=== PATIENT | male | born 1990 | race Caucasian/White ===

== ENCOUNTER 2017-12-23 02:24 | Emergency (ER) | payer SELFPAY ==
--- NOTE | 2017-12-23 03:49 | ER ---
Nurse's Notes [facility] Name: Carlitos Merrill Age: 27 yrs Sex: Male : 1990 Arrival Date: 12/23/2017 Time: 02:24 Bed 5 Private MD: Diagnosis: Leg cramps Presentation: 12/23 02:32 Presenting complaint: Patient states: that he is having pain from his left foot all the fc way up to his groin. Now the foot itself is also numb. Has swollen area and bruising to top of foot. Denies any injury. Transition of care: patient was not received from another setting of care. Onset of symptoms was December 23, 2017 at 00:30. Risk Assessment: Do you want to hurt yourself or someone else? Patient reports no desire to harm self or others. Initial Sepsis Screen: Does the patient meet any 2 criteria? No. Patient's initial sepsis screen is negative. Does the patient have a suspected source of infection? No. Patient's initial sepsis screen is negative. Care prior to arrival: None. 02:32 Method Of Arrival: Ambulatory 02:32 Acuity: DEMIAN 4 Triage Assessment: 02:38 General: Appears uncomfortable, slender, Behavior is calm, cooperative, appropriate for age. Pain: Complains of pain in left foot and left leg Pain currently is 5 out of 10 on a pain scale. Quality of pain is described as aching, sharp, throbbing, numb, Pain began 2 hours ago. Is intermittent. EENT: No deficits noted. Neuro: Level of Consciousness is awake, alert, obeys commands, Oriented to person, place, time, situation, Reports numbness in left foot. Cardiovascular: No deficits noted. Respiratory: No deficits noted. GI: No deficits noted. : No deficits noted. Derm: Skin is pink, warm \\T\\ dry. Bruising that is dark purple, on dorsum of left foot. Musculoskeletal: Circulation, motion, and sensation intact. Capillary refill < 3 seconds, Range of motion: intact in all extremities, Reports pain in left foot and left leg. Historical: - Allergies: 02:36 No Known Allergies; fc - Home Meds: 02:36 Adderall XR 30 mg Oral cp24 1 cap twice a day [Active]; fc - PMHx: 02:36 ADD/ADHD; Anxiety; Depression; fc - PSHx: 02:36 None; fc - Immunization history:: Last tetanus immunization: up to date. - Social history:: Smoking status: Patient uses tobacco products, smokes one-half pack cigarettes per day, Patient uses alcohol, occasionally. Patient/guardian denies using street drugs, the patient reports quitting approximately 2 years ago. - Ebola Screening: : Patient negative for fever greater than or equal to 101.5 degrees Fahrenheit, and additional compatible Ebola Virus Disease symptoms Patient denies exposure to infectious person Patient denies travel to an Ebola-affected area in the 21 days before illness onset. Screenin:41 Abuse screen: Denies threats or abuse. Nutritional screening: No deficits noted. fc Tuberculosis screening: No symptoms or risk factors identified. Fall Risk None identified. Assessment: 02:46 Reassessment: Patient appears in no apparent distress at this time. No changes from ak1 previously documented assessment. 03:46 Reassessment: US called out, pt transported to US room where pt stated "it feels better ak I don't think i need this" pt was brought back to his room where he then ambulated to the restroom with steady gait. ERP notified. Vital Signs: 02:36 BP 133 / 88; Pulse 94; Resp 18; Temp 98.3(O); Pulse Ox 98% on R/A; Weight 79.38 kg (R); fc Height 6 ft. 0 in. (182.88 cm) (R); Pain 5/10; 02:36 Body Mass Index 23.73 (79.38 kg, 182.88 cm) ED Course: 02:24 Patient arrived in ED. ds1 02:34 Triage completed. fc 02:36 Arm band placed on Patient placed in an exam room, on a stretcher. fc 02:41 Patient has correct armband on for positive identification. Bed in low position. Call light in reach. 02:41 No provider procedures requiring assistance completed. fc 02:42 Marilou Lund, MICHELL is Primary Nurse. ak1 02:48 Robbin Quiros MD is Attending Physician. tw4 03:52 Patient did not have IV access during this emergency room visit. ak1 Administered Medications: No medications were administered Outcome: 03:49 Discharge ordered by . tw4 03:51 Discharged to home ambulatory, with friend. ak1 03:51 Condition: good 03:51 Discharge instructions given to patient, Instructed on discharge instructions, follow up and referral plans. Demonstrated understanding of instructions, follow-up care. 03:52 Patient left the ED. ak1 Signatures: Dhara Jeronimo RN RN fc Ivonne Duke ds1 Marilou Lund RN RN ak1 Robbin Quiros MD MD tw4 Corrections: (The following items were deleted from the chart) 02:40 02:36 Pulse 94bpm; Resp 18bpm; Pulse Ox 98% RA; Temp 98.3F Oral; 79.38 kg Reported; fc Height 6 ft. 0 in. Reported; BMI: 23.7; Pain 5/10; fc
--- NOTE | 2017-12-23 03:49 | EDPHYS ---
Physician Documentation [facility] Name: Carlitos Merrill Age: 27 yrs Sex: Male : 1990 Arrival Date: 12/23/2017 Time: 02:24 Bed 5 Private MD: ED Physician Robbin Quiros HPI: 12/23 03:04 This 27 yrs old Male presents to ER via Ambulatory with complaints of Leg tw4 Pain. 03:04 The patient presents with pain. The complaints affect the lateral aspect of left thigh, tw4 left calf, medial aspect of left thigh and left medial ankle. Onset: The symptoms/episode began/occurred yesterday. Modifying factors: The symptoms are alleviated by nothing. the symptoms are aggravated by nothing. Associated signs and symptoms: The patient has no apparent associated signs or symptoms. Severity of symptoms: At their worst the symptoms were moderate, in the emergency department the symptoms are unchanged. The patient has not experienced similar symptoms in the past. Historical: - Allergies: 02:36 No Known Allergies; fc - Home Meds: 02:36 Adderall XR 30 mg Oral cp24 1 cap twice a day [Active]; fc - PMHx: 02:36 ADD/ADHD; Anxiety; Depression; fc - PSHx: 02:36 None; fc - Immunization history:: Last tetanus immunization: up to date. - Social history:: Smoking status: Patient uses tobacco products, smokes one-half pack cigarettes per day, Patient uses alcohol, occasionally. Patient/guardian denies using street drugs, the patient reports quitting approximately 2 years ago. - Ebola Screening: : Patient negative for fever greater than or equal to 101.5 degrees Fahrenheit, and additional compatible Ebola Virus Disease symptoms Patient denies exposure to infectious person Patient denies travel to an Ebola-affected area in the 21 days before illness onset. ROS: 03:04 Constitutional: Negative for fever, chills, and weight loss, Cardiovascular: Negative tw4 for chest pain, palpitations, and edema, Respiratory: Negative for shortness of breath, cough, wheezing, and pleuritic chest pain, Abdomen/GI: Negative for abdominal pain, nausea, vomiting, diarrhea, and constipation, Back: Negative for injury and pain, Neuro: Negative for headache, weakness, numbness, tingling, and seizure, Psych: Negative for depression, anxiety, suicide ideation, homicidal ideation, and hallucinations. Exam: 03:04 Constitutional: This is a well developed, well nourished patient who is awake, alert, tw4 and in no acute distress. Head/Face: Normocephalic, atraumatic. Chest/axilla: Normal chest wall appearance and motion. Nontender with no deformity. No lesions are appreciated. Cardiovascular: Regular rate and rhythm with a normal S1 and S2. No gallops, murmurs, or rubs. Normal PMI, no JVD. No pulse deficits. Respiratory: Lungs have equal breath sounds bilaterally, clear to auscultation and percussion. No rales, rhonchi or wheezes noted. No increased work of breathing, no retractions or nasal flaring. Abdomen/GI: Soft, non-tender, with normal bowel sounds. No distension or tympany. No guarding or rebound. No evidence of tenderness throughout. 03:04 Musculoskeletal/extremity: Extremities: all appear grossly normal, with no appreciated pain with palpation, ROM: no acute changes. Vital Signs: 02:36 BP 133 / 88; Pulse 94; Resp 18; Temp 98.3(O); Pulse Ox 98% on R/A; Weight 79.38 kg (R); fc Height 6 ft. 0 in. (182.88 cm) (R); Pain 5/10; 02:36 Body Mass Index 23.73 (79.38 kg, 182.88 cm) fc MDM: 02:48 Patient medically screened. tw4 03:49 Data reviewed: vital signs, nurses notes. Counseling: I had a detailed discussion with tw4 the patient and/or guardian regarding: the historical points, exam findings, and any diagnostic results supporting the discharge/admit diagnosis. ED course: pt refused ultrasound states he feels better. Administered Medications: No medications were administered Disposition: 12/23/17 03:49 Discharged to Home. Impression: Leg cramps. - Condition is Stable. - Discharge Instructions: Leg Cramps. - Medication Reconciliation Form, Thank You Letter, Antibiotic Education, Prescription Opioid Use form. - Follow up: Private Physician; When: As needed; Reason: Recheck today's complaints, Continuance of care, Re-evaluation by your physician. - Problem is new. - Symptoms have improved. Signatures: Dispatcher [employer] EDMS Dhara Jeronimo RN RN Marilou Benites RN RN ak1 Robbin Quiros MD MD tw4 Corrections: (The following items were deleted from the chart) 03:52 03:49 12/23/2017 03:49 Discharged to Home. Impression: Leg cramps. Condition is Stable. ak1 Forms are Medication Reconciliation Form, Thank You Letter, Antibiotic Education, Prescription Opioid Use. Follow up: Private Physician; When: As needed; Reason: Recheck today's complaints, Continuance of care, Re-evaluation by your physician. Problem is new. Symptoms have improved. tw4
[2017-12-23 03:56] VITALS: BP 133/88; TEMP 98.3; O2SAT 98
== END 2017-12-23 03:52 | disposition home or self-care (01) ==
LOC: ER 02:24
DX: R25.2 Cramp and spasm (principal); F90.9 Attention-deficit hyperactivity disorder, unspecified type; F17.210 Nicotine dependence, cigarettes, uncomplicated
CPT/HCPCS: 99281

== ENCOUNTER 2018-03-23 23:21 | Emergency (ER) | payer SELFPAY ==
--- OUTSIDE RECORDS SUMMARY | 2018-03-23 23:24 | XMS REPORT ---
:1990 [facility] [address] [place] [id number] Care Team Providers Name Role Phone Unavailable Unavailable Unavailable Problems This patient has no known problems. Allergies, Adverse Reactions, Alerts This patient has no known allergies or adverse reactions. Medications This patient has no known medications.
--- NOTE | 2018-03-23 23:51 | ER ---
Nurse's Notes [facility] Name: Carlitos Merrill Age: 27 yrs Sex: Male : 1990 Arrival Date: 03/23/2018 Time: 23:25 Bed 20 Private MD: Diagnosis: Encounter for issue of repeat prescription Presentation: 03/23 23:34 Presenting complaint: Patient states: "I HAD AN ALLERGIC REACTION WHILE WALKING OUTSIDE FROM FRIEND'S HOUSE TEN DAYS AGO. I WAS TREATED IN [facility], THEY WERE ABOUT TO PRESCRIBE A EPIPEN BUT I DID NOT GET ANY PRESCRIPTION. I WAS HOPING IF I CAN GET ONE IN CASE IT HAPPENS AGAIN.". Transition of care: patient was not received from another setting of care. Onset of symptoms is unknown. Risk Assessment: Do you want to hurt yourself or someone else? Patient reports no desire to harm self or others. Initial Sepsis Screen: Does the patient meet any 2 criteria? No. Patient's initial sepsis screen is negative. Does the patient have a suspected source of infection? No. Patient's initial sepsis screen is negative. Care prior to arrival: None. 23:34 Method Of Arrival: Ambulatory 23:34 Acuity: DEMIAN 4 rv Historical: - Allergies: 23:40 No Known Allergies; rv - Home Meds: 23:40 Adderall XR 30 mg Oral cp24 1 cap twice a day [Active]; rv - PMHx: 23:40 ADD/ADHD; Anxiety; Depression; rv - PSHx: 23:40 None; rv - Immunization history:: Adult Immunizations not up to date. - Social history:: Smoking status: Patient/guardian denies using tobacco, never smoked. - Ebola Screening: : Patient negative for fever greater than or equal to 101.5 degrees Fahrenheit, and additional compatible Ebola Virus Disease symptoms Patient denies exposure to infectious person Patient denies travel to an Ebola-affected area in the 21 days before illness onset. Screenin:41 Abuse screen: Denies threats or abuse. Denies injuries from another. Nutritional rv screening: No deficits noted. Tuberculosis screening: No symptoms or risk factors identified. Fall Risk None identified. Assessment: 23:41 General: Appears in no apparent distress. comfortable, Behavior is calm, cooperative. rv Pain: Denies pain. Neuro: Level of Consciousness is awake, alert, obeys commands, Oriented to person, place, time, situation. Cardiovascular: Capillary refill < 3 seconds. Respiratory: Airway is patent. GI: No signs and/or symptoms were reported involving the gastrointestinal system. : No signs and/or symptoms were reported regarding the genitourinary system. EENT: No signs and/or symptoms were reported regarding the EENT system. Derm: Skin is intact. Vital Signs: 23:33 BP 130 / 85; Pulse 87; Resp 16; Temp 98.7(O); Pulse Ox 100% on R/A; Weight 77.11 kg; ao Height 6 ft. 0 in. (182.88 cm); Pain 0/10; 23:49 BP 129 / 65; Pulse 81; Pulse Ox 100% ; rv 23:33 Body Mass Index 23.06 (77.11 kg, 182.88 cm) ao ED Course: 23:25 Patient arrived in ED. es 23:35 Niko Almeida PA is PHCP. jr8 23:35 Dean Tolbert MD is Attending Physician. jr8 23:39 Triage completed. rv 23:41 Patient has correct armband on for positive identification. Bed in low position. Call rv light in reach. Side rails up X 1. Pulse ox on. NIBP on. 23:48 Ward Dior MD is Referral Physician. jr8 23:57 No provider procedures requiring assistance completed. Patient did not have IV access rv during this emergency room visit. Administered Medications: No medications were administered Outcome: 23:50 Discharge ordered by . jr8 23:58 Discharged to home ambulatory. rv 23:58 Condition: good 23:58 Discharge instructions given to patient, Instructed on discharge instructions, follow up and referral plans. medication usage, Demonstrated understanding of instructions, follow-up care, medications, Prescriptions given X 1. 23:58 Patient left the ED. rv Signatures: Skye Sung es Niko Almeida PA PA jr8 Kevan Verdugo, RN RN Nicanor Baum RN RN rv
--- NOTE | 2018-03-23 23:51 | EDPHYS ---
Physician Documentation [facility] Name: Carlitos Merrill Age: 27 yrs Sex: Male : 1990 Arrival Date: 03/23/2018 Time: 23:25 Bed 20 Private MD: ED Physician Dean Tolbert HPI: 03/23 23:51 This 27 yrs old Male presents to ER via Ambulatory with complaints of want rx jr8 for allergic reaction. 23:51 Onset: The symptoms/episode began/occurred acutely, 1 week(s) ago. Severity of jr8 symptoms: At their worst the symptoms were severe in the emergency department the symptoms have resolved. The patient has not experienced similar symptoms in the past. The patient has been recently seen by a physician:. Patient stated that he had severe allergic reaction and was brought to [facility] where he was stabilized and discharged. Stated that he did not receive his prescription for epi-pen at that time due to error but was suppose to receive it. Stated that he was concerned if he were to have another reaction like that, that he would be without emergent relief. Wants to know if we can prescribe him one . Historical: - Allergies: 23:40 No Known Allergies; rv - Home Meds: 23:40 Adderall XR 30 mg Oral cp24 1 cap twice a day [Active]; rv - PMHx: 23:40 ADD/ADHD; Anxiety; Depression; rv - PSHx: 23:40 None; rv - Immunization history:: Adult Immunizations not up to date. - Social history:: Smoking status: Patient/guardian denies using tobacco, never smoked. - Ebola Screening: : Patient negative for fever greater than or equal to 101.5 degrees Fahrenheit, and additional compatible Ebola Virus Disease symptoms Patient denies exposure to infectious person Patient denies travel to an Ebola-affected area in the 21 days before illness onset. ROS: 23:51 Eyes: Negative for injury, pain, redness, and discharge, ENT: Negative for injury, jr8 pain, and discharge, Neck: Negative for injury, pain, and swelling, Cardiovascular: Negative for chest pain, palpitations, and edema, Respiratory: Negative for shortness of breath, cough, wheezing, and pleuritic chest pain, Abdomen/GI: Negative for abdominal pain, nausea, vomiting, diarrhea, and constipation, Back: Negative for injury and pain, MS/Extremity: Negative for injury and deformity, Skin: Negative for injury, rash, and discoloration, Neuro: Negative for headache, weakness, numbness, tingling, and seizure. Exam: 23:51 Eyes: Pupils equal round and reactive to light, extra-ocular motions intact. Lids and jr8 lashes normal. Conjunctiva and sclera are non-icteric and not injected. Cornea within normal limits. Periorbital areas with no swelling, redness, or edema. ENT: Nares patent. No nasal discharge, no septal abnormalities noted. Tympanic membranes are normal and external auditory canals are clear. Oropharynx with no redness, swelling, or masses, exudates, or evidence of obstruction, uvula midline. Mucous membranes moist. Neck: Trachea midline, no thyromegaly or masses palpated, and no cervical lymphadenopathy. Supple, full range of motion without nuchal rigidity, or vertebral point tenderness. No Meningismus. Cardiovascular: Regular rate and rhythm with a normal S1 and S2. No gallops, murmurs, or rubs. Normal PMI, no JVD. No pulse deficits. Respiratory: Lungs have equal breath sounds bilaterally, clear to auscultation and percussion. No rales, rhonchi or wheezes noted. No increased work of breathing, no retractions or nasal flaring. Abdomen/GI: Soft, non-tender, with normal bowel sounds. No distension or tympany. No guarding or rebound. No evidence of tenderness throughout. Back: No spinal tenderness. No costovertebral tenderness. Full range of motion. Skin: Warm, dry with normal turgor. Normal color with no rashes, no lesions, and no evidence of cellulitis. MS/ Extremity: Pulses equal, no cyanosis. Neurovascular intact. Full, normal range of motion. Neuro: Awake and alert, GCS 15, oriented to person, place, time, and situation. Cranial nerves II-XII grossly intact. Motor strength 5/5 in all extremities. Sensory grossly intact. Cerebellar exam normal. Normal gait. Vital Signs: 23:33 BP 130 / 85; Pulse 87; Resp 16; Temp 98.7(O); Pulse Ox 100% on R/A; Weight 77.11 kg; ao Height 6 ft. 0 in. (182.88 cm); Pain 0/10; 23:49 BP 129 / 65; Pulse 81; Pulse Ox 100% ; rv 23:33 Body Mass Index 23.06 (77.11 kg, 182.88 cm) ao MDM: 23:35 Patient medically screened. jr8 23:48 Data reviewed: vital signs, nurses notes, and as a result, I will discharge patient. jr8 Data interpreted: Pulse oximetry: on room air is 100 %. Interpretation: normal. Counseling: I had a detailed discussion with the patient and/or guardian regarding: the historical points, exam findings, and any diagnostic results supporting the discharge/admit diagnosis, the need for outpatient follow up, a family practitioner, to return to the emergency department if symptoms worsen or persist or if there are any questions or concerns that arise at home. Administered Medications: No medications were administered Disposition: 03/24 00:16 Co-signature as Attending Physician, Dean Tolbert MD. rosibel Disposition: 03/23/18 23:50 Discharged to Home. Impression: Encounter for issue of repeat prescription. - Condition is Stable. - Discharge Instructions: Epinephrine Injection, Medicine Refill at the Emergency Department. - Prescriptions for epinephrine 0.3 mg/0.3 mL Injection auto- injector - inject 0.3 milliliter by INTRAMUSCULAR route as directed as needed for anaphylaxis; 1 Pack. - Medication Reconciliation Form, Thank You Letter, Antibiotic Education, Prescription Opioid Use form. - Follow up: Ward Dior MD; When: 2 - 3 days; Reason: Recheck today's complaints, Continuance of care, Re-evaluation by your physician. - Problem is new. - Symptoms are unchanged. Signatures: Dean Tolbert MD MD pkNiko Osuna PA PA jr8 Nicanor Rai RN RN rv Corrections: (The following items were deleted from the chart) 03/23 23:58 23:50 03/23/2018 23:50 Discharged to Home. Impression: Encounter for issue of repeat rv prescription. Condition is Stable. Forms are Medication Reconciliation Form, Thank You Letter, Antibiotic Education, Prescription Opioid Use. Follow up: Ward Dior; When: 2 - 3 days; Reason: Recheck today's complaints, Continuance of care, Re-evaluation by your physician. Problem is new. Symptoms are unchanged. jr8
[2018-03-24 01:25] VITALS: TEMP 98.7; O2SAT 100
[2018-03-24 01:26] VITALS: BP 129/65
== END 2018-03-23 23:58 | disposition home or self-care (01) ==
LOC: ER 23:21
DX: Z76.0 Encounter for issue of repeat prescription (principal); F90.9 Attention-deficit hyperactivity disorder, unspecified type; F41.8 Other specified anxiety disorders; Z88.9 Allergy status to unspecified drugs, medicaments and biological substances
CPT/HCPCS: 99283

== ENCOUNTER 2018-03-25 21:38 | Emergency (ER) | payer SELFPAY ==
--- OUTSIDE RECORDS SUMMARY | 2018-03-25 21:40 | XMS REPORT ---
:1990 [facility] Address [address] [place] [id number] Care Team Providers Name Role Phone Unavailable Unavailable Unavailable Problems This patient has no known problems. Allergies, Adverse Reactions, Alerts This patient has no known allergies or adverse reactions. Medications This patient has no known medications.
--- NOTE | 2018-03-25 22:40 | EDPHYS ---
Physician Documentation [facility] Name: Carlitos Merrill Age: 27 yrs Sex: Male : 1990 Arrival Date: 03/25/2018 Time: 21:39 Bed 16 Private MD: Ward Dior E ED Physician Adonis Lerner HPI: 03/25 22:11 This 27 yrs old Male presents to ER via Ambulatory with complaints of jr8 Breathing Difficulty. 22:11 Onset: The symptoms/episode began/occurred acutely, today. Duration: The symptoms are jr8 continuous. The patient's shortness of breath has no apparent modifying factors. Associated signs and symptoms: The patient has no apparent associated signs or symptoms. Severity of symptoms: At their worst the symptoms were mild in the emergency department the symptoms are unchanged. The patient has experienced a previous episode. The patient has not recently seen a physician. Patient stated that he feels like he is having breathing difficulty again. Had allergic reaction and was treated at [facility] the other day . Historical: - Allergies: 21:44 No Known Allergies; aj - Home Meds: 21:44 Adderall XR 30 mg Oral cp24 1 cap twice a day [Active]; aj - PMHx: 21:44 ADD/ADHD; Anxiety; Depression; aj - PSHx: 21:44 None; aj - Immunization history:: Adult Immunizations up to date. - Social history:: Smoking status: Patient uses tobacco products, smokes one-half pack cigarettes per day. - Ebola Screening: : Patient negative for fever greater than or equal to 101.5 degrees Fahrenheit, and additional compatible Ebola Virus Disease symptoms Patient denies exposure to infectious person Patient denies travel to an Ebola-affected area in the 21 days before illness onset No symptoms or risks identified at this time. ROS: 22:11 Eyes: Negative for injury, pain, redness, and discharge, ENT: Negative for injury, jr8 pain, and discharge, Neck: Negative for injury, pain, and swelling, Cardiovascular: Negative for chest pain, palpitations, and edema, Abdomen/GI: Negative for abdominal pain, nausea, vomiting, diarrhea, and constipation, Back: Negative for injury and pain, MS/Extremity: Negative for injury and deformity, Skin: Negative for injury, rash, and discoloration, Neuro: Negative for headache, weakness, numbness, tingling, and seizure. 22:11 Respiratory: Positive for cough, shortness of breath. Exam: 22:11 Head/Face: Normocephalic, atraumatic. Eyes: Pupils equal round and reactive to light, jr8 extra-ocular motions intact. Lids and lashes normal. Conjunctiva and sclera are non-icteric and not injected. Cornea within normal limits. Periorbital areas with no swelling, redness, or edema. ENT: Nares patent. No nasal discharge, no septal abnormalities noted. Tympanic membranes are normal and external auditory canals are clear. Oropharynx with no redness, swelling, or masses, exudates, or evidence of obstruction, uvula midline. Mucous membranes moist. Neck: Trachea midline, no thyromegaly or masses palpated, and no cervical lymphadenopathy. Supple, full range of motion without nuchal rigidity, or vertebral point tenderness. No Meningismus. Cardiovascular: Regular rate and rhythm with a normal S1 and S2. No gallops, murmurs, or rubs. Normal PMI, no JVD. No pulse deficits. Respiratory: Lungs have equal breath sounds bilaterally, clear to auscultation and percussion. No rales, rhonchi or wheezes noted. No increased work of breathing, no retractions or nasal flaring. Abdomen/GI: Soft, non-tender, with normal bowel sounds. No distension or tympany. No guarding or rebound. No evidence of tenderness throughout. Back: No spinal tenderness. No costovertebral tenderness. Full range of motion. Skin: Warm, dry with normal turgor. Normal color with no rashes, no lesions, and no evidence of cellulitis. MS/ Extremity: Pulses equal, no cyanosis. Neurovascular intact. Full, normal range of motion. Neuro: Awake and alert, GCS 15, oriented to person, place, time, and situation. Cranial nerves II-XII grossly intact. Motor strength 5/5 in all extremities. Sensory grossly intact. Cerebellar exam normal. Normal gait. Vital Signs: 21:45 BP 139 / 101; Pulse 102; Resp 16; Temp 98.1; Pulse Ox 99% on R/A; Weight 81.65 kg; aj Height 6 ft. 0 in. (182.88 cm); 22:30 BP 127 / 89; Pulse 99; Resp 16; Pulse Ox 100% on R/A; Pain 0/10; aa1 21:45 Body Mass Index 24.41 (81.65 kg, 182.88 cm) foreign MDM: 21:59 Patient medically screened. jr8 22:39 Data reviewed: vital signs, nurses notes, radiologic studies, plain films, and as a jr8 result, I will discharge patient. Data interpreted: Pulse oximetry: on room air is 99 %. Interpretation: normal. Counseling: I had a detailed discussion with the patient and/or guardian regarding: the historical points, exam findings, and any diagnostic results supporting the discharge/admit diagnosis, radiology results, the need for outpatient follow up, a family practitioner, to return to the emergency department if symptoms worsen or persist or if there are any questions or concerns that arise at home. 03/25 21:57 Order name: XRAY Chest Pa And Lat (2 Views) jr8 03/25 22:11 Order name: Neck Soft Tissue XRAY jr8 Administered Medications: No medications were administered Disposition: 03/26 00:46 Co-signature as Attending Physician, Adonis Lerner MD. rn Disposition: 03/25/18 22:40 Discharged to Home. Impression: Cough. - Condition is Stable. - Discharge Instructions: Cough, Adult. - Medication Reconciliation Form, Thank You Letter, Antibiotic Education, Prescription Opioid Use form. - Follow up: Ward Dior MD; When: 2 - 3 days; Reason: Recheck today's complaints, Continuance of care, Re-evaluation by your physician. - Problem is new. - Symptoms have improved. Signatures: Dispatcher [employer] EDMS Lia Romero RN RN aa1 Kacey Ramon RN RN aj Nieto, Roman, MD MD rn Roszak, Josh, PA PA jr8 Corrections: (The following items were deleted from the chart) 03/25 22:13 22:11 Respiratory: Positive for cough, shortness of breath, Negative for jr8 jr8 22:54 22:40 03/25/2018 22:40 Discharged to Home. Impression: Cough. Condition is Stable. aa1 Forms are Medication Reconciliation Form, Thank You Letter, Antibiotic Education, Prescription Opioid Use. Follow up: Ward Dior; When: 2 - 3 days; Reason: Recheck today's complaints, Continuance of care, Re-evaluation by your physician. Problem is new. Symptoms have improved. jr8
--- NOTE | 2018-03-25 22:40 | ER ---
Nurse's Notes [facility] Name: Carlitos Merrill Age: 27 yrs Sex: Male : 1990 Arrival Date: 03/25/2018 Time: 21:39 Bed 16 Private MD: Ward Dior E Diagnosis: Cough Presentation: 03/25 21:41 Presenting complaint: Patient states: Patient believes he is having an allergic aj reaction to an unknown substance. Reports difficulty "clearing my chest". Reports getting lightheaded unless he is continually "transferring fluid from my chest to my throat." Also reports "lots of fluke worms in my stool.". Transition of care: patient was not received from another setting of care. Onset of symptoms was March 25, 2018. Risk Assessment: Do you want to hurt yourself or someone else? Patient reports no desire to harm self or others. Initial Sepsis Screen: Does the patient meet any 2 criteria? No. Patient's initial sepsis screen is negative. Does the patient have a suspected source of infection? No. Patient's initial sepsis screen is negative. Care prior to arrival: None. 21:41 Method Of Arrival: Ambulatory aj 21:41 Acuity: DEMIAN 3 aj Triage Assessment: 21:44 General: Appears in no apparent distress. comfortable, Behavior is calm, cooperative, aj appropriate for age. Pain: Denies pain. Neuro: Level of Consciousness is awake, alert, obeys commands, Oriented to person, place, time, situation, Appropriate for age. Respiratory: Reports shortness of breath cough that is Onset: The symptoms/episode began/occurred suddenly, the patient has mild shortness of breath Denies. GI: Abdomen is flat, non-distended. Derm: Skin is intact, is healthy with good turgor, Skin is pink, warm \\T\\ dry. normal. Historical: - Allergies: 21:44 No Known Allergies; aj - Home Meds: 21:44 Adderall XR 30 mg Oral cp24 1 cap twice a day [Active]; aj - PMHx: 21:44 ADD/ADHD; Anxiety; Depression; aj - PSHx: 21:44 None; aj - Immunization history:: Adult Immunizations up to date. - Social history:: Smoking status: Patient uses tobacco products, smokes one-half pack cigarettes per day. - Ebola Screening: : Patient negative for fever greater than or equal to 101.5 degrees Fahrenheit, and additional compatible Ebola Virus Disease symptoms Patient denies exposure to infectious person Patient denies travel to an Ebola-affected area in the 21 days before illness onset No symptoms or risks identified at this time. Screenin:00 Abuse screen: Denies threats or abuse. Denies injuries from another. Nutritional aa1 screening: No deficits noted. Tuberculosis screening: No symptoms or risk factors identified. Fall Risk None identified. Assessment: 22:00 General: Appears in no apparent distress. comfortable, slender, Behavior is calm, aa1 cooperative, appropriate for age. Pain: Denies pain. Neuro: Level of Consciousness is awake, alert, obeys commands, Oriented to person, place, time, situation, Moves all extremities. Full function Gait is steady, Speech is normal. Cardiovascular: Heart tones S1 S2 present Rhythm is regular. Respiratory: Airway is patent Respiratory effort is even, unlabored, Respiratory pattern is regular, symmetrical, Breath sounds are clear bilaterally. GI: Reports worms in stool Patient currently denies abdominal pain, bloody stool, diarrhea. : No signs and/or symptoms were reported regarding the genitourinary system. EENT: Throat is clear Reports difficulty swallowing. Derm: Skin is intact, is healthy with good turgor, Skin is pink, warm \\T\\ dry. Musculoskeletal: Circulation, motion, and sensation intact. Capillary refill < 3 seconds. 22:52 Reassessment: Patient appears in no apparent distress at this time. Patient is aa1 alert/active/playful, equal unlabored respirations, skin warm/dry/pink. PA discussed d /c \\T\\ f/u instructions with pt. Pt denied any questions or concerns however left prior to signing d/c papers. Vital Signs: 21:45 BP 139 / 101; Pulse 102; Resp 16; Temp 98.1; Pulse Ox 99% on R/A; Weight 81.65 kg; aj Height 6 ft. 0 in. (182.88 cm); 22:30 BP 127 / 89; Pulse 99; Resp 16; Pulse Ox 100% on R/A; Pain 0/10; aa1 21:45 Body Mass Index 24.41 (81.65 kg, 182.88 cm) aj ED Course: 21:39 Patient arrived in ED. ds1 21:39 Ward Dior MD is Private Physician. ds1 21:43 Triage completed. aj 21:45 Arm band placed on right wrist. Patient placed in an exam room. aj 21:46 [facility] Almeida [facility]. jr8 21:46 Adonis Lerner MD is Attending Physician. jr8 21:47 Lia Romero, RN is Primary Nurse. aa1 22:00 Patient has correct armband on for positive identification. Bed in low position. Call aa1 light in reach. Pulse ox on. NIBP on. 22:27 XRAY Chest Pa And Lat (2 Views) In Process Unspecified. EDMS 22:27 Neck Soft Tissue XRAY In Process Unspecified. EDMS 22:40 Ward Dior MD is Referral Physician. jr8 22:53 No provider procedures requiring assistance completed. Patient did not have IV access aa1 during this emergency room visit. Administered Medications: No medications were administered Outcome: 22:40 Discharge ordered by . jr8 22:53 Discharged to home ambulatory. aa1 22:53 Condition: good 22:53 Discharge instructions given to patient, Instructed on discharge instructions, follow up and referral plans. Demonstrated understanding of instructions, follow-up care. 22:54 Patient left the ED. aa1 Signatures: Dispatcher [employer] EDMS Lia Romero, RN RN aa1 Kacey Ramon RN RN Ivonne Ugalde ds1 Niko Almeida PA PA jr8 Corrections: (The following items were deleted from the chart) 21:45 21:41 Presenting complaint: Patient states: Patient believes he is having an allergic aj reaction to an unknown substance. Reports difficulty "clearing my chest". Reports getting lightheaded unless he is continually "transferring fluid from my chest to my throat." aj
[2018-03-25 23:04] VITALS: BP 139/101; TEMP 98.1; O2SAT 99
--- NOTE | 2018-03-26 08:28 | RAD REPORT ---
EXAM DESCRIPTION: RAD - Chest Pa And Lat (2 Views) - 03/25/2018 10:28 pm CLINICAL HISTORY: COUGH Chest pain. COMPARISON: No comparisons FINDINGS: The lungs are clear. The heart is normal in size. No displaced fractures. IMPRESSION: No acute or concerning finding suspected.
--- NOTE | 2018-03-26 08:29 | RAD REPORT ---
EXAM DESCRIPTION: RAD - Neck Soft Tissue - 03/25/2018 10:27 pm CLINICAL HISTORY: PAIN COMPARISON: No comparisons FINDINGS: Prevertebral soft tissues are normal. Epiglottis and aryepiglottic folds are normal. Air c olumn is patent. No foreign body is seen. IMPRESSION: Negative study.
== END 2018-03-25 22:54 | disposition home or self-care (01) ==
LOC: ER 21:38
DX: R05 Cough (principal); F90.9 Attention-deficit hyperactivity disorder, unspecified type; F17.210 Nicotine dependence, cigarettes, uncomplicated
CPT/HCPCS: 70360; 71046; 99283

== ENCOUNTER 2018-03-26 09:25 | Emergency (ER) | payer SELFPAY ==
--- OUTSIDE RECORDS SUMMARY | 2018-03-26 09:27 | XMS REPORT ---
:1990 [facility] Address [address] [place] [address] [place] [id number] Care Team Providers Name Role Phone Unavailable Unavailable Unavailable Problems This patient has no known problems. Allergies, Adverse Reactions, Alerts This patient has no known allergies or adverse reactions. Medications This patient has no known medications.
--- NOTE | 2018-03-26 13:18 | ER ---
Nurse's Notes [facility] Name: Carlitos Merrill Age: 27 yrs Sex: Male : 1990 Arrival Date: 03/26/2018 Time: 09:31 Bed 12 Private MD: Ward Dior E Diagnosis: Fecal/GI parasites Presentation: 03/26 09:33 Presenting complaint: Patient states: "I noticed that I have some parasites in my stool aa5 and I came in yesterday but was unable to provide a stool sample so I came back". Pt reports episodic abd pain. Pt states "I'm just hungry all the time". Pt denies N/V. Transition of care: patient was not received from another setting of care. Onset of symptoms was March 2018. Risk Assessment: Do you want to hurt yourself or someone else? Patient reports no desire to harm self or others. Initial Sepsis Screen: Does the patient meet any 2 criteria? No. Patient's initial sepsis screen is negative. Does the patient have a suspected source of infection? No. Patient's initial sepsis screen is negative. Care prior to arrival: None. 09:33 Method Of Arrival: Ambulatory aa5 09:33 Acuity: DEMIAN 3 aa5 Historical: - Allergies: 09:35 No Known Allergies; aa5 - Home Meds: 09:35 None [Active]; aa5 - PMHx: 09:35 ADD/ADHD; Anxiety; Depression; aa5 - PSHx: 09:35 None; aa5 - Immunization history:: Adult Immunizations unknown. - Social history:: Smoking status: Patient uses tobacco products, smokes one-half pack cigarettes per day. - Ebola Screening: : No symptoms or risks identified at this time. Screenin:39 Abuse screen: Denies threats or abuse. Denies injuries from another. Nutritional dm5 screening: No deficits noted. Tuberculosis screening: No symptoms or risk factors identified. Fall Risk None identified. Assessment: 12:45 General: Appears in no apparent distress. Behavior is calm, cooperative. Pain: Denies dm5 pain. GI: Reports worms in stool. Vital Signs: 09:35 BP 128 / 78; Pulse 85; Resp 16 S; Temp 98.0(TE); Pulse Ox 100% on R/A; Weight 79.38 kg aa5 (R); Height 6 ft. 0 in. (182.88 cm) (R); Pain 0/10; 12:45 BP 120 / 68; Pulse 80; Resp 18; Temp 98.0; Pulse Ox 100% on R/A; dm5 09:35 Body Mass Index 23.73 (79.38 kg, 182.88 cm) aa5 ED Course: 09:31 Patient arrived in ED. mr 09:31 Ward Dior MD is Private Physician. mr 09:34 Triage completed. aa5 09:34 Arm band placed on. aa5 12:45 Patient has correct armband on for positive identification. dm5 12:45 No provider procedures requiring assistance completed. Patient did not have IV access dm5 during this emergency room visit. 12:51 Pb Whatley MD is Attending Physician. kdr 13:16 Ward Dior MD is Referral Physician. kdr 13:40 Jasmina Damian, RN is Primary Nurse. dm5 Administered Medications: No medications were administered Outcome: 13:17 Discharge ordered by MD. kdr 13:39 Discharged to home ambulatory. dm5 13:39 Condition: good 13:39 Discharge instructions given to patient, Instructed on discharge instructions, follow up and referral plans. medication usage, Demonstrated understanding of instructions, follow-up care, medications. 13:40 Patient left the ED. dm5 13:49 Patient left the ED. dm5 Signatures: Jasmina Damian, RN RN dm5 Pb Whatley MD MD [facility] Laura Rivas mr TylerAmita RN RN aa5
--- NOTE | 2018-03-26 13:18 | EDPHYS ---
Physician Documentation [facility] Name: Carlitos Merrill Age: 27 yrs Sex: Male : 1990 Arrival Date: 03/26/2018 Time: 09:31 Bed 12 Private MD: Ward Dior E ED Physician Pb Whatley HPI: 03/26 13:58 This 27 yrs old Male presents to ER via Ambulatory with complaints of Worms kdr in stool. 13:58 The patient presents with Worms in stool - I think I have liver flukes. Onset: The kdr symptoms/episode began/occurred gradually, 1 month(s) ago. The symptoms do not radiate. Associated signs and symptoms: Pertinent positives: Wrist and ankle aches, mild GI discomfort . The symptoms are described as achy, intermittent. Modifying factors: The symptoms are alleviated by nothing, the symptoms are aggravated by nothing. Severity of pain: At its worst the pain was very mild in the emergency department the pain is unchanged. The patient has not experienced similar symptoms in the past. The patient has not recently seen a physician. Historical: - Allergies: 09:35 No Known Allergies; aa5 - Home Meds: 09:35 None [Active]; aa5 - PMHx: 09:35 ADD/ADHD; Anxiety; Depression; aa5 - PSHx: 09:35 None; aa5 - Immunization history:: Adult Immunizations unknown. - Social history:: Smoking status: Patient uses tobacco products, smokes one-half pack cigarettes per day. - Ebola Screening: : No symptoms or risks identified at this time. ROS: 13:58 Constitutional: Negative for fever, chills, and weight loss, Eyes: Negative for injury, kdr pain, redness, and discharge - he does c/o slight blurry vision that is intermittent ENT: Negative for injury, pain, and discharge, Neck: Negative for injury, pain, and swelling, Cardiovascular: Negative for chest pain, palpitations, and edema, Respiratory: Negative for shortness of breath, cough, wheezing, and pleuritic chest pain, Back: Negative for injury and pain, : Negative for injury, bleeding, discharge, and swelling, MS/Extremity: Negative for injury and deformity, Skin: Negative for injury, rash, and discoloration, Neuro: Negative for headache, weakness, numbness, tingling, and seizure activity. Psych: Negative for depression, anxiety, suicide ideation, homicidal ideation, and hallucinations, Allergy/Immunology: Negative for hives, rash, and allergies, Endocrine: Negative for neck swelling, polydipsia, polyuria, polyphagia, and marked weight changes, Hematologic/Lymphatic: Negative for swollen nodes, abnormal bleeding, and unusual bruising. 13:58 Abdomen/GI: Positive for abdominal pain. 13:58 Abdomen/GI: Positive for Worms/flukes in his stool. kdr Exam: 13:58 Constitutional: This is a well developed, well nourished patient who is awake, alert, kdr and in no acute distress. Head/Face: Normocephalic, atraumatic. Eyes: Pupils equal round and reactive to light, extra-ocular motions intact. Lids and lashes normal. Conjunctiva and sclera are non-icteric and not injected. Cornea within normal limits. Periorbital areas with no swelling, redness, or edema. Neck: Trachea midline, no thyromegaly or masses palpated, and no cervical lymphadenopathy. Supple, full range of motion without nuchal rigidity, or vertebral point tenderness. No Meningismus. Chest/axilla: Normal chest wall appearance and motion. Nontender with no deformity. No lesions are appreciated. Cardiovascular: Regular rate and rhythm with a normal S1 and S2. No gallops, murmurs, or rubs. Normal PMI, no JVD. No pulse deficits. Respiratory: Lungs have equal breath sounds bilaterally, clear to auscultation and percussion. No rales, rhonchi or wheezes noted. No increased work of breathing, no retractions or nasal flaring. Abdomen/GI: Soft, non-tender, with normal bowel sounds. No distension or tympany. No guarding or rebound. No evidence of tenderness throughout. Back: No spinal tenderness. No costovertebral tenderness. Full range of motion. Skin: Warm, dry with normal turgor. Normal color with no rashes, no lesions, and no evidence of cellulitis. MS/ Extremity: Pulses equal, no cyanosis. Neurovascular intact. Full, normal range of motion. Neuro: Awake and alert, GCS 15, oriented to person, place, time, and situation. Cranial nerves II-XII grossly intact. Motor strength 5/5 in all extremities. Sensory grossly intact. Cerebellar exam normal. Normal gait. Psych: Awake, alert, with orientation to person, place and time. Behavior, mood, and affect are within normal limits. Vital Signs: 09:35 BP 128 / 78; Pulse 85; Resp 16 S; Temp 98.0(TE); Pulse Ox 100% on R/A; Weight 79.38 kg aa5 (R); Height 6 ft. 0 in. (182.88 cm) (R); Pain 0/10; 12:45 BP 120 / 68; Pulse 80; Resp 18; Temp 98.0; Pulse Ox 100% on R/A; dm5 09:35 Body Mass Index 23.73 (79.38 kg, 182.88 cm) aa5 MDM: 13:17 Patient medically screened. kdr 13:58 Data reviewed: vital signs, nurses notes. Counseling: I had a detailed discussion with kdr the patient and/or guardian regarding: the historical points, exam findings, and any diagnostic results supporting the discharge/admit diagnosis, the need for outpatient follow up. 03/26 10:38 Order name: Ova And Parasites snw Administered Medications: No medications were administered Disposition: 03/26/18 13:17 Discharged to Home. Impression: Fecal/GI parasites. - Condition is Stable. - Discharge Instructions: Tapeworm Infection. - Prescriptions for mebendazole - take 1 tablet by ORAL route every 12 hours for 3 days; 6 tablet. - Medication Reconciliation Form, Thank You Letter, Antibiotic Education form. - Follow up: Ward Dior MD; When: 2 - 3 days; Reason: If symptoms return, Further diagnostic work-up, Recheck today's complaints, Continuance of care, Re-evaluation by your physician. - Problem is an ongoing problem. - Symptoms are unchanged. Signatures: Dispatcher [employer] [facility] Jasmina Damian RN RN dm5 Pb Whatley MD MD [facility] Amita Tyler RN RN aa5 Corrections: (The following items were deleted from the chart) 13:40 13:17 03/26/2018 13:17 Discharged to Home. Impression: Fecal/GI parasites. Condition is dm5 Stable. Forms are Medication Reconciliation Form, Thank You Letter, Antibiotic Education, Prescription Opioid Use. Follow up: Ward Dior; When: 2 - 3 days; Reason: If symptoms return, Further diagnostic work-up, Recheck today's complaints, Continuance of care, Re-evaluation by your physician. Problem is an ongoing problem. Symptoms are unchanged. kdr 13:49 13:40 03/26/2018 13:17 Discharged to Home. Impression: Fecal/GI parasites. Condition is dm5 Stable. Discharge Instructions: Tapeworm Infection. Prescriptions for mebendazole - take 1 tablet by ORAL route every 12 hours for 3 days; 6 tablet. and Forms are Medication Reconciliation Form, Thank You Letter, Antibiotic Education. Follow up: Ward Dior; When: 2 - 3 days; Reason: If symptoms return, Further diagnostic work-up, Recheck today's complaints, Continuance of care, Re-evaluation by your physician. Problem is an ongoing problem. Symptoms are unchanged. dm5
[2018-03-26 13:57] VITALS: BP 120/68; TEMP 98; O2SAT 100
== END 2018-03-26 13:49 | disposition home or self-care (01) ==
LOC: ER 09:25
DX: B82.9 Intestinal parasitism, unspecified (principal); F17.210 Nicotine dependence, cigarettes, uncomplicated
CPT/HCPCS: 87177; 87209; 99281

== ENCOUNTER 2018-04-14 03:46 | Emergency (ER) | payer SELFPAY ==
--- OUTSIDE RECORDS SUMMARY | 2018-04-14 03:48 | XMS REPORT ---
:1990 [facility] Address [address] [place] [id number] Care Team Providers Name Role Phone Unavailable Unavailable Unavailable Problems This patient has no known problems. Allergies, Adverse Reactions, Alerts This patient has no known allergies or adverse reactions. Medications This patient has no known medications.
--- NOTE | 2018-04-14 05:04 | EDPHYS ---
Physician Documentation [facility] Name: Carlitos Merrill Age: 27 yrs Sex: Male : 1990 Arrival Date: 04/14/2018 Time: 03:47 Bed 8 Private MD: Ward Dior E ED Physician Janice Snyder HPI: 04/14 05:02 This 27 yrs old Male presents to ER via Ambulatory with complaints of detox, ma2 Vomiting, Fever. 05:02 Onset: The symptoms/episode began/occurred gradually, 3 month(s) ago. Possible causes:. ma2 Associated signs and symptoms: Pertinent negatives: abdominal pain, belching, diarrhea, flatulence, hematuria. Severity of symptoms: At their worst the symptoms were very mild. The patient has experienced similar episodes in the past. 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 Historical: - Allergies: 04:07 No Known Allergies; lp1 - Home Meds: 04:07 None [Active]; lp1 - PMHx: 04:07 ADD/ADHD; Anxiety; Depression; lp1 - PSHx: 04:07 None; lp1 - Immunization history:: Adult Immunizations up to date. - Social history:: Smoking status: Patient uses tobacco products, denies chronic smoking, but will smoke occasionally, Patient/guardian denies using alcohol, street drugs, The patient lives with family. - Ebola Screening: : No symptoms or risks identified at this time. - Family history:: not pertinent. ROS: 05:02 Constitutional: Negative for fever, chills, and weight loss, Cardiovascular: Negative ma2 for chest pain, palpitations, and edema. 05:02 All other systems are negative. Exam: 05:02 Constitutional: This is a well developed, well nourished patient who is awake, alert, ma2 and in no acute distress. Chest/axilla: Normal chest wall appearance and motion. Nontender with no deformity. No lesions are appreciated. Respiratory: Lungs have equal breath sounds bilaterally, clear to auscultation and percussion. No rales, rhonchi or wheezes noted. No increased work of breathing, no retractions or nasal flaring. Abdomen/GI: Soft, non-tender, with normal bowel sounds. No distension or tympany. No guarding or rebound. No evidence of tenderness throughout. Back: No spinal tenderness. No costovertebral tenderness. Full range of motion. Neuro: Awake and alert, GCS 15, oriented to person, place, time, and situation. Cranial nerves II-XII grossly intact. Motor strength 5/5 in all extremities. Sensory grossly intact. Cerebellar exam normal. Normal gait. Vital Signs: 04:04 BP 127 / 89; Pulse 68; Resp 16; Temp 98(O); Pulse Ox 99% on R/A; Weight 74.84 kg; lp1 Height 6 ft. 0 in. (182.88 cm); Pain 0/10; 04:04 Body Mass Index 22.38 (74.84 kg, 182.88 cm) lp1 MDM: 04:33 Patient medically screened. ma2 05:02 Differential diagnosis: Nonspecific abd pain, gastritis, viral gastroenteritis, ma2 gastroenteritis. Data reviewed: vital signs, nurses notes. Counseling: I had a detailed discussion with the patient and/or guardian regarding: the historical points, exam findings, and any diagnostic results supporting the discharge/admit diagnosis, the presence of at least one elevated blood pressure reading (>120/80) during this emergency department visit, the need for outpatient follow up. 04/14 04:17 Order name: Urine Dipstick--Ancillary (enter results) cc 04/14 04:17 Order name: Urine Dipstick-Ancillary (obtain specimen); Complete Time: 04:17 cc Administered Medications: No medications were administered Disposition: 04/14/18 05:04 Discharged to Home. Impression: Adverse effect of amphetamines. - Condition is Stable. - Discharge Instructions: Stimulant Use Disorder-Amphetamines. - Medication Reconciliation Form, Thank You Letter, Antibiotic Education, Prescription Opioid Use form. - Follow up: Private Physician; When: Tomorrow; Reason: Continuance of care. - Problem is new. - Symptoms are unchanged. Signatures: Dispatcher [employer] EDMS Shannon Oliva Laura, RN RN lp1 Janice Snyder MD MD ma2 Corrections: (The following items were deleted from the chart) 05:14 05:04 04/14/2018 05:04 Discharged to Home. Impression: Adverse effect of amphetamines. lp1 Condition is Stable. Forms are Medication Reconciliation Form, Thank You Letter, Antibiotic Education, Prescription Opioid Use. Follow up: Private Physician; When: Tomorrow; Reason: Continuance of care. Problem is new. Symptoms are unchanged. ma2
--- NOTE | 2018-04-14 05:04 | ER ---
Nurse's Notes [facility] Name: Carlitos Merrill Age: 27 yrs Sex: Male : 1990 Arrival Date: 04/14/2018 Time: 03:47 Bed 8 Private MD: Ward Dior E Diagnosis: Adverse effect of amphetamines Presentation: 04/14 04:00 Presenting complaint: Patient states: "I'm homeless but I didn't want to use the excuse lp1 that I'm suicidal because I'm not, I just need to be somewhere to detox before my next check comes in so I don't use anymore"; Patient states using meth and ETOH occasionally; Wants to be clean but states he does not need rehab; States last used meth a day and a half ago. Transition of care: patient was not received from another setting of care. Onset of symptoms was April 14, 2018. Risk Assessment: Do you want to hurt yourself or someone else? Patient reports no desire to harm self or others. Initial Sepsis Screen: Does the patient meet any 2 criteria? No. Patient's initial sepsis screen is negative. Does the patient have a suspected source of infection? No. Patient's initial sepsis screen is negative. Care prior to arrival: None. 04:00 Method Of Arrival: Ambulatory lp1 04:00 Acuity: DEMIAN 3 lp1 Historical: - Allergies: 04:07 No Known Allergies; lp1 - Home Meds: 04:07 None [Active]; lp1 - PMHx: 04:07 ADD/ADHD; Anxiety; Depression; lp1 - PSHx: 04:07 None; lp1 - Immunization history:: Adult Immunizations up to date. - Social history:: Smoking status: Patient uses tobacco products, denies chronic smoking, but will smoke occasionally, Patient/guardian denies using alcohol, street drugs, The patient lives with family. - Ebola Screening: : No symptoms or risks identified at this time. - Family history:: not pertinent. Screenin:10 Abuse screen: Denies threats or abuse. Denies injuries from another. Nutritional lp1 screening: No deficits noted. Tuberculosis screening: No symptoms or risk factors identified. Fall Risk None identified. Assessment: 04:08 General: Appears in no apparent distress. unkempt, Behavior is calm. Pain: Denies pain. lp1 Neuro: Level of Consciousness is awake, alert, obeys commands, Oriented to person, place, time, situation, Gait is steady, Pupils are PERRLA. Cardiovascular: Patient's skin is warm and dry. Respiratory: Respiratory effort is even, unlabored. GI: Abdomen is flat, Reports Nausea and vomiting when he begins to detox, none at this time. : No signs and/or symptoms were reported regarding the genitourinary system. EENT: No signs and/or symptoms were reported regarding the EENT system. Derm: Skin is pink, warm \\T\\ dry. Musculoskeletal: Circulation, motion, and sensation intact. 04:32 Reassessment: Dr. Galeas at bedside; patient states "basically I just need a place and lp1 eat and sleep while I let this stuff get out of my system". 05:02 Reassessment: Provider at bedside to discuss results from previous visit with patient; lp1 Patient became agitated and states "I want to see my results for myself"; Patient advised to see Medical Records to obtain results from previous ER visit, Patient left ER at this time. Vital Signs: 04:04 BP 127 / 89; Pulse 68; Resp 16; Temp 98(O); Pulse Ox 99% on R/A; Weight 74.84 kg; lp1 Height 6 ft. 0 in. (182.88 cm); Pain 0/10; 04:04 Body Mass Index 22.38 (74.84 kg, 182.88 cm) lp1 ED Course: 03:47 Patient arrived in ED. am2 03:48 aWrd Dior MD is Private Physician. am2 04:00 Jessica Wan, MICHELL is Primary Nurse. lp1 04:04 Triage completed. lp1 04:04 Arm band placed on right wrist. lp1 04:10 Patient has correct armband on for positive identification. Bed in low position. lp1 04:10 Urine collected: clean catch specimen, clear. lp1 04:33 Janice Snyder MD is Attending Physician. ma2 04:33 No provider procedures requiring assistance completed. Patient did not have IV access lp1 during this emergency room visit. Administered Medications: No medications were administered Outcome: 05:04 Discharge ordered by . ma2 05:10 Discharged to home lp1 05:10 Condition: good 05:10 Demonstrated understanding of instructions, follow-up care, Patient left prior to receiving paper discharge instructions 05:10 Patient left the ED. lp1 Signatures: Jessica Wan RN RN lp1 Kacey Morris am2 Janice Snyder MD MD ma2 Corrections: (The following items were deleted from the chart) 04:08 04:00 Presenting complaint: Patient states: "I'm homeless but I didn't want to use the lp1 excuse that I'm suicidal because I'm not, I just need to be somewhere to detox before my next check comes in so I don't use anymore"; Patient states using meth and ETOH occasionally; Wants to be clean but states he does not need rehab lp1 05:15 05:14 Patient left the ED. lp1 lp1 05:16 04:08 GI: Abdomen is flat, lp1 lp1
[2018-04-14 05:20] VITALS: BP 127/89; TEMP 98; O2SAT 99
[2018-04-14 05:43] LABS: Urine Glucose NEGATIVE (NEG); Urine Specific Gravity 1.025 (1.005-1.030)
[2018-04-14 05:44] LABS: Urine Blood NEGATIVE (NEG); Urine Protein TRACE (NEG); Urine pH 6.5 (5.0-7.0)
== END 2018-04-14 05:14 | disposition home or self-care (01) ==
LOC: ER 03:46
DX: R11.10 Vomiting, unspecified (principal); T43.625A Adverse effect of amphetamines, initial encounter; Z72.0 Tobacco use
CPT/HCPCS: 81003; 99282

== ENCOUNTER 2018-04-18 10:49 | Emergency (ER) | payer SELFPAY ==
--- OUTSIDE RECORDS SUMMARY | 2018-04-18 10:51 | XMS REPORT ---
:1990 Author Organization [facility] Address [address] [place] [address] Dr. Cole [address] [place] [id number] Care Team Providers Name Role Phone Unavailable Unavailable Unavailable Problems This patient has no known problems. Allergies, Adverse Reactions, Alerts This patient has no known allergies or adverse reactions. Medications This patient has no known medications.
--- NOTE | 2018-04-18 12:15 | EDPHYS ---
Physician Documentation [facility] Name: Carlitos Merrill Age: 27 yrs Sex: Male : 1990 Arrival Date: 04/18/2018 Time: 10:52 Bed 6 Private MD: Ward Dior E ED Physician Rom Palencia HPI: 04/18 12:12 This 27 yrs old Male presents to ER via Ambulatory with complaints of gs Depression. 12:12 The patient presents to the emergency department with homeless, destitute, hungry says gs has no where to go requesting meal. Historical: - Allergies: 10:58 No Known Allergies; aj - PMHx: 10:58 ADD/ADHD; Anxiety; Depression; aj - PSHx: 10:58 None; aj - Immunization history:: Adult Immunizations up to date. - Social history:: Smoking status: Patient uses tobacco products, smokes one-half pack cigarettes per day. - Ebola Screening: : Patient negative for fever greater than or equal to 101.5 degrees Fahrenheit, and additional compatible Ebola Virus Disease symptoms Patient denies exposure to infectious person Patient denies travel to an Ebola-affected area in the 21 days before illness onset No symptoms or risks identified at this time. ROS: 12:12 All other systems are negative. gs Exam: 12:12 Head/Face: Normocephalic, atraumatic. Eyes: Pupils equal round and reactive to light, gs extra-ocular motions intact. Lids and lashes normal. Conjunctiva and sclera are non-icteric and not injected. Cornea within normal limits. Periorbital areas with no swelling, redness, or edema. ENT: Nares patent. No nasal discharge, no septal abnormalities noted. Tympanic membranes are normal and external auditory canals are clear. Oropharynx with no redness, swelling, or masses, exudates, or evidence of obstruction, uvula midline. Mucous membranes moist. Neck: Trachea midline, no thyromegaly or masses palpated, and no cervical lymphadenopathy. Supple, full range of motion without nuchal rigidity, or vertebral point tenderness. No Meningismus. Chest/axilla: Normal chest wall appearance and motion. Nontender with no deformity. No lesions are appreciated. Cardiovascular: Regular rate and rhythm with a normal S1 and S2. No gallops, murmurs, or rubs. Normal PMI, no JVD. No pulse deficits. Respiratory: Lungs have equal breath sounds bilaterally, clear to auscultation and percussion. No rales, rhonchi or wheezes noted. No increased work of breathing, no retractions or nasal flaring. Abdomen/GI: Soft, non-tender, with normal bowel sounds. No distension or tympany. No guarding or rebound. No evidence of tenderness throughout. Back: No spinal tenderness. No costovertebral tenderness. Full range of motion. Skin: Warm, dry with normal turgor. Normal color with no rashes, no lesions, and no evidence of cellulitis. MS/ Extremity: Pulses equal, no cyanosis. Neurovascular intact. Full, normal range of motion. Neuro: Awake and alert, GCS 15, oriented to person, place, time, and situation. Cranial nerves II-XII grossly intact. Motor strength 5/5 in all extremities. Sensory grossly intact. Cerebellar exam normal. Normal gait. 12:12 Constitutional: The patient appears alert, awake. 12:12 Psych: Affect is calm, Patient has no thoughts/intents to harm self or others. Judgement / Insight is impaired. Delusions/hallucinations are not present. Vital Signs: 10:59 BP 133 / 87; Pulse 70; Resp 19; Temp 98.3; Pulse Ox 100% on R/A; Weight 74.84 kg; aj Height 6 ft. 0 in. (182.88 cm); 10:59 Body Mass Index 22.38 (74.84 kg, 182.88 cm) aj MDM: 11:09 Patient medically screened. gs 12:12 Differential diagnosis: depression, si. Data reviewed: vital signs, nurses notes. gs Response to treatment: the patient's symptoms have mildly improved after treatment, and as a result, I will discharge patient. 04/18 11:13 Order name: Diet Regular; Complete Time: 11:14 eb 04/18 11:14 Order name: Diet Regular; Complete Time: 11:14 eb Administered Medications: No medications were administered Disposition: 04/18/18 12:14 Discharged to Home. Impression: Homelessness, Major depressive disorder, recurrent, unspecified. - Condition is Stable. - Discharge Instructions: Stress and Stress Management. - Medication Reconciliation Form, Thank You Letter, Antibiotic Education, Prescription Opioid Use form. - Follow up: Private Physician; When: 2 - 3 days; Reason: Re-evaluation by your physician. Signatures: Kacey Ramon RN RN aj Charly Nassar RN RN la1 Rom Palencia MD MD gs Corrections: (The following items were deleted from the chart) 13:40 12:14 04/18/2018 12:14 Discharged to Home. Impression: Homelessness; Major depressive la1 disorder, recurrent, unspecified. Condition is Stable. Forms are Medication Reconciliation Form, Thank You Letter, Antibiotic Education, Prescription Opioid Use. Follow up: Private Physician; When: 2 - 3 days; Reason: Re-evaluation by your physician. gs
--- NOTE | 2018-04-18 12:15 | ER ---
Nurse's Notes [facility] Name: Carlitos Merrill Age: 27 yrs Sex: Male : 1990 Arrival Date: 04/18/2018 Time: 10:52 Bed 6 Private MD: Ward Dior E Diagnosis: Homelessness;Major depressive disorder, recurrent, unspecified Presentation: 04/18 10:57 Presenting complaint: Patient states: "I'm hungry because I haven't eaten and I am aj homeless so I have been sleeping in the rain.". Transition of care: patient was not received from another setting of care. Onset of symptoms was April 18, 2018. Risk Assessment: Do you want to hurt yourself or someone else? Patient reports no desire to harm self or others. Initial Sepsis Screen: Does the patient meet any 2 criteria? No. Patient's initial sepsis screen is negative. Does the patient have a suspected source of infection? No. Patient's initial sepsis screen is negative. Care prior to arrival: None. 10:57 Method Of Arrival: Ambulatory 10:57 Acuity: DEMIAN 5 aj Triage Assessment: 10:59 General: Appears in no apparent distress. comfortable, Behavior is calm, cooperative, aj appropriate for age. Pain: Complains of pain in body aches. Neuro: Level of Consciousness is awake, alert, obeys commands, Oriented to person, place, time, situation, Appropriate for age. Respiratory: Airway is patent Respiratory effort is even, unlabored, Respiratory pattern is regular, symmetrical. GI: Reports hunger. Derm: Skin is intact, is healthy with good turgor, Skin is pink, warm \\T\\ dry. normal. Historical: - Allergies: 10:58 No Known Allergies; aj - PMHx: 10:58 ADD/ADHD; Anxiety; Depression; aj - PSHx: 10:58 None; aj - Immunization history:: Adult Immunizations up to date. - Social history:: Smoking status: Patient uses tobacco products, smokes one-half pack cigarettes per day. - Ebola Screening: : Patient negative for fever greater than or equal to 101.5 degrees Fahrenheit, and additional compatible Ebola Virus Disease symptoms Patient denies exposure to infectious person Patient denies travel to an Ebola-affected area in the 21 days before illness onset No symptoms or risks identified at this time. Screenin:04 Abuse screen: Denies threats or abuse. Denies injuries from another. Nutritional hj screening: No deficits noted. Tuberculosis screening: No symptoms or risk factors identified. Fall Risk None identified. Assessment: 11:04 GI: Bowel sounds present X 4 quads. Abd is soft. hj 11:04 General: Appears in no apparent distress. uncomfortable, Behavior is calm, cooperative, hj appropriate for age. Pain: Complains of pain in body. Neuro: Level of Consciousness is awake, alert, obeys commands, Oriented to person, place, time, situation, Appropriate for age. Cardiovascular: Capillary refill < 3 seconds Patient's skin is warm and dry. Respiratory: Airway is patent Respiratory effort is even, unlabored, Respiratory pattern is regular, symmetrical. : No signs and/or symptoms were reported regarding the genitourinary system. EENT: No signs and/or symptoms were reported regarding the EENT system. Derm: No signs and/or symptoms reported regarding the dermatologic system. Musculoskeletal: Reports pain in abdomen, body. 11:31 Reassessment: pt provided with warm blanket and tray; awaiting POC;. hj 11:36 Reassessment: provided 2 more warm blankets; pt states :"im freezing";. hj 11:45 Reassessment: pt was heard talking to himself in a loud voice; MAURO Encinas RN in the hj room speaking with pt;. 12:09 Reassessment: Spoke with patient who states that he has been feeling okay, but just ss today woke up very hungry, and not feeling well because of that. "Since I ate the chips, I feel better." Denies SI or HI ideations. States that he just wants to get some sleep and eat a good meal. Lights dimmed for comfort, noise minimized. Patient is grateful for conversation/ verbal redirection. Is now resting with eyes closed in bed. Respirations remain even and unlabored. 12:12 Reassessment: awaiting diet tray from cafeteria. ss 12:14 Reassessment: pt complains, changed to Depression;. hj 13:39 Reassessment: Patient appears in no apparent distress at this time. No changes from la1 previously documented assessment. Patient and/or family updated on plan of care and expected duration. Pain level reassessed. Patient is alert, oriented x 3, equal unlabored respirations, skin warm/dry/pink. Vital Signs: 10:59 BP 133 / 87; Pulse 70; Resp 19; Temp 98.3; Pulse Ox 100% on R/A; Weight 74.84 kg; aj Height 6 ft. 0 in. (182.88 cm); 10:59 Body Mass Index 22.38 (74.84 kg, 182.88 cm) ED Course: 10:52 Patient arrived in ED. mr 10:52 Ward Dior MD is Private Physician. mr 10:53 [facility] 10:53 Rom Palencia MD is Attending Physician. [facility] 10:58 Triage completed. aj 10:59 Arm band placed on right wrist. Patient placed in an exam room. aj 11:04 Bry Dong RN is Primary Nurse. 11:04 Patient has correct armband on for positive identification. Placed in gown. Bed in low hj position. Call light in reach. 11:36 Bry Dong RN is Primary Nurse. 13:39 No provider procedures requiring assistance completed. la1 13:40 Patient did not have IV access during this emergency room visit. la1 Administered Medications: No medications were administered Outcome: 12:14 Discharge ordered by . 13:40 Discharged to home ambulatory. la1 13:40 Condition: stable 13:40 Discharge instructions given to patient, Instructed on discharge instructions, follow up and referral plans. Demonstrated understanding of instructions, follow-up care. 13:40 Patient left the ED. la1 Signatures: Kacey Ramon, RN Omar Waite PA PA jmm Rivera, Maria Ce Leija, MICHELL GALARZA Charly Nassar RN RN la1 Joaquin, Henry, RN RN hj Starr, Gregory, MD MD
[2018-04-18 13:45] VITALS: BP 133/87; TEMP 98.3; O2SAT 100
== END 2018-04-18 13:40 | disposition home or self-care (01) ==
LOC: ER 10:49
DX: F33.9 Major depressive disorder, recurrent, unspecified (principal); Z59.0 Homelessness; F17.210 Nicotine dependence, cigarettes, uncomplicated
CPT/HCPCS: 99281

== ENCOUNTER 2019-05-25 19:36 | Emergency (ER) | payer SELFPAY ==
[2019-05-25] MEDS ORDERED: NA CHLORIDE 0.9% 1,000 ML ONE (20:34)
[2019-05-25 20:41] LABS: Absolute Lymphocytes (CBC) 2.3 K/uL (0.7-4.9); Basophils % 0.9 % (0-1.3); Hematocrit 43.2 % (39.6-49.0); Lymphocytes % 31.7 % (15.3-44.8); MPV 10.1 fL (7.6-11.3); RBC Red Blood Cell Count 4.78 M/uL (4.33-5.43)
[2019-05-25 20:56] LABS: Albumin 4.2 g/dL (3.4-5.0); Bilirubin Direct 0.2 mg/dL (0-0.2); Bilirubin Total 0.5 mg/dL (0.2-1.0); Potassium 3.8 mmol/L (3.5-5.1); Protein, Total 7.7 g/dL (6.4-8.2)
--- NOTE | 2019-05-25 22:38 | EDPHYS ---
Physician Documentation [facility] Name: Carlitos Merrill Age: 28 yrs Sex: Male : 1990 Arrival Date: 05/25/2019 Time: 19:40 Bed 6 Private MD: ED Physician Adonis Lerner HPI: 05/25 20:24 This 28 yrs old Male presents to ER via Ambulatory with complaints of rn Abdominal Pain. 20:24 The patient presents with abdominal pain. Onset: The symptoms/episode began/occurred 1 rn week(s) ago. The symptoms do not radiate. Associated signs and symptoms: Pertinent positives: blood in stools, constipation, nausea, Pertinent negatives: fever, testicular pain, vomiting blood. The symptoms are described as crampy. Modifying factors: The symptoms are alleviated by nothing, the symptoms are aggravated by nothing. Severity of pain: At its worst the pain was mild in the emergency department the pain has improved. The patient has not experienced similar symptoms in the past. Reports started using IV meth again, has been having constipation, finally laxatives worked but reports stringy and strange appearing stool. Had blood 2 days ago. Reports ate what he thinks maybe undercooked pork chops recently. Denies abd pain now. Reports needles contaminated he thinks. Feels different from symptoms of using meth and withdrawal. Last use today, had been off meth for 1.5 weeks to see if helped symptoms. . Historical: - Allergies: 20:09 No Known Allergies; lp1 - Home Meds: 20:09 None [Active]; lp1 - PMHx: 20:09 Depression; Anxiety; ADD/ADHD; lp1 - PSHx: 20:09 None; lp1 - Immunization history:: Adult Immunizations up to date. - Social history:: Smoking status: Patient uses tobacco products, smokes one-half pack cigarettes per day. - Ebola Screening: : No symptoms or risks identified at this time. - Family history:: not pertinent. - Hospitalizations: : No recent hospitalization is reported. ROS: 20:24 Constitutional: Negative for fever, chills, and weight loss, Eyes: Negative for injury, rn pain, redness, and discharge, Neck: Negative for injury, pain, and swelling, Cardiovascular: Negative for chest pain, palpitations, and edema, Respiratory: Negative for shortness of breath, cough, wheezing, and pleuritic chest pain, Abdomen/GI: + abd cramping, and constipation, thin stool MS/Extremity: Negative for injury and deformity, Skin: Negative for injury, rash, and discoloration, Neuro: Negative for headache, weakness, numbness, tingling, and seizure. Exam: 20:24 Constitutional: This is a well developed, well nourished patient who is awake, alert, rn and in no acute distress. Head/Face: Normocephalic, atraumatic. Eyes: Pupils equal round and reactive to light, extra-ocular motions intact. Lids and lashes normal. Conjunctiva and sclera are non-icteric and not injected. Cornea within normal limits. Periorbital areas with no swelling, redness, or edema. ENT: MMM Cardiovascular: Regular rate and rhythm. No pulse deficits. Respiratory: No increased work of breathing, no retractions or nasal flaring. Abdomen/GI: soft, non-tender, non-distended MS/ Extremity: Pulses equal, no cyanosis. Neurovascular intact. Full, normal range of motion. Equal circumference. Neuro: Awake and alert, GCS 15, oriented to person, place, time, and situation. Cranial nerves II-XII grossly intact. Motor strength 5/5 in all extremities. Sensory grossly intact. Cerebellar exam normal. Normal gait. Vital Signs: 20:09 BP 143 / 82; Pulse 85; Resp 16; Temp 98.2(O); Pulse Ox 100% on R/A; Weight 79.38 kg lp1 (R); Height 6 ft. 0 in. (182.88 cm); Pain 3/10; 20:52 BP 136 / 84; Pulse 80; Resp 18; Pulse Ox 100% on R/A; Pain 0/10; aa1 21:50 BP 134 / 89; Pulse 89; Resp 16; Pulse Ox 99% on R/A; Pain 0/10; aa1 20:09 Body Mass Index 23.73 (79.38 kg, 182.88 cm) lp1 MDM: 20:15 Patient medically screened. rn 22:32 Differential diagnosis: appendicitis, diverticulitis, non-specific abd pain, rn pancreatitis, Ureterolithiasis, parasitic infection, constipation, drug related problem. Data reviewed: vital signs, nurses notes, lab test result(s), radiologic studies, CT scan, and as a result, I will discharge patient. Counseling: I had a detailed discussion with the patient and/or guardian regarding: the historical points, exam findings, and any diagnostic results supporting the discharge/admit diagnosis, lab results, radiology results, the need for outpatient follow up, to return to the emergency department if symptoms worsen or persist or if there are any questions or concerns that arise at home. Response to treatment: the patient's symptoms have markedly improved after treatment, the patient's condition has returned to base line, the patient is now symptom free, and as a result, I will discharge patient. Special discussion: I discussed with the patient/guardian in detail that at this point there is no indication for admission to the hospital. It is understood, however, that if the symptoms persist or worsen the patient needs to return immediately for re-evaluation. ED course: Reports feels "great", no problems, wants to go home. Stool studies ordered, CT no acute findings.. 05/25 20:23 Order name: Basic Metabolic Panel; Complete Time: 22:32 rn 05/25 20:23 Order name: CBC with Diff; Complete Time: 20:55 rn 05/25 20:23 Order name: Creatinine for Radiology; Complete Time: 22:32 rn 05/25 20:23 Order name: Hepatic Function; Complete Time: 22:32 rn 05/25 20:23 Order name: Lipase; Complete Time: 22:32 rn 05/25 20:23 Order name: IV Saline Lock; Complete Time: 20:37 rn 05/25 20:23 Order name: Labs collected and sent; Complete Time: 20:37 rn 05/25 20:23 Order name: CT Abd/Pelvis - IV Contrast Only rn Administered Medications: 20:37 Drug: NS 0.9% 1000 ml Route: IV; Rate: 1000 ml; Site: right antecubital; aa1 21:20 Follow up: IV Status: Completed infusion; IV Intake: 1000ml aa1 Disposition: 05/25/19 22:36 Discharged to Home. Impression: Constipation, unspecified, Generalized abdominal pain. - Condition is Stable. - Discharge Instructions: Abdominal Pain, Adult, Constipation, Adult, Stimulant Use Disorder-Methamphetamines. - Medication Reconciliation Form, Thank You Letter, Antibiotic Education, Prescription Opioid Use form. - Follow up: Private Physician; When: As needed; Reason: Recheck today's complaints, Re-evaluation by your physician. - Problem is new. - Symptoms have improved. Signatures: Dispatcher [employer] EDLia Dominique RN RN aa1 Adonis Lerner MD MD rn Pena, Laura, RN RN lp1 Corrections: (The following items were deleted from the chart) 22:41 22:36 05/25/2019 22:36 Discharged to Home. Impression: Constipation, unspecified; aa1 Generalized abdominal pain. Condition is Stable. Forms are Medication Reconciliation Form, Thank You Letter, Antibiotic Education, Prescription Opioid Use. Follow up: Private Physician; When: As needed; Reason: Recheck today's complaints, Re-evaluation by your physician. Problem is new. Symptoms have improved. rn
--- NOTE | 2019-05-25 22:38 | ER ---
Nurse's Notes [facility] Name: Carlitos Merrill Age: 28 yrs Sex: Male : 1990 Arrival Date: 05/25/2019 Time: 19:40 Bed 6 Private MD: Diagnosis: Constipation, unspecified;Generalized abdominal pain Presentation: 05/25 20:08 Presenting complaint: Patient states: Abdominal pain x 2 weeks, trouble having BM, took lp1 a laxative that helped but not completely relieved; states general abdominal pain; Denies vomiting. Transition of care: patient was not received from another setting of care. Onset of symptoms was May 25, 2019. Risk Assessment: Do you want to hurt yourself or someone else? Patient reports no desire to harm self or others. Initial Sepsis Screen: Does the patient meet any 2 criteria? No. Patient's initial sepsis screen is negative. Does the patient have a suspected source of infection? No. Patient's initial sepsis screen is negative. Care prior to arrival: None. 20:08 Method Of Arrival: Ambulatory lp1 20:08 Acuity: DEMIAN 3 lp1 Historical: - Allergies: 20:09 No Known Allergies; lp1 - Home Meds: 20:09 None [Active]; lp1 - PMHx: 20:09 Depression; Anxiety; ADD/ADHD; lp1 - PSHx: 20:09 None; lp1 - Immunization history:: Adult Immunizations up to date. - Social history:: Smoking status: Patient uses tobacco products, smokes one-half pack cigarettes per day. - Ebola Screening: : No symptoms or risks identified at this time. - Family history:: not pertinent. - Hospitalizations: : No recent hospitalization is reported. Screenin:11 Abuse screen: Denies threats or abuse. Denies injuries from another. Nutritional lp1 screening: No deficits noted. Tuberculosis screening: No symptoms or risk factors identified. Fall Risk None identified. Assessment: 20:22 General: Appears in no apparent distress. comfortable, slender, Behavior is calm, aa1 cooperative, appropriate for age. Pain: Denies pain. Neuro: Level of Consciousness is awake, alert, obeys commands, Oriented to person, place, time, situation, Moves all extremities. Full function Gait is steady, Speech is normal. Cardiovascular: Heart tones S1 S2 present Rhythm is regular. Respiratory: Airway is patent Respiratory effort is even, unlabored, Respiratory pattern is regular, symmetrical. GI: Abdomen is flat, Bowel sounds present X 4 quads. Abd is soft and non tender X 4 quads. Reports constipation, change in stool appearance that concerned him for parasites. GI: Patient currently denies abdominal pain, nausea, vomiting. : No signs and/or symptoms were reported regarding the genitourinary system. EENT: No signs and/or symptoms were reported regarding the EENT system. Derm: Skin is intact, is healthy with good turgor, Skin is pink, warm \T\ dry. Musculoskeletal: Circulation, motion, and sensation intact. Capillary refill < 3 seconds. 21:20 Reassessment: Patient appears in no apparent distress at this time. Patient and/or aa1 family updated on plan of care and expected duration. Pain level reassessed. Patient is alert, oriented x 3, equal unlabored respirations, skin warm/dry/pink. Pt taken to CT at this time. 22:20 Reassessment: Patient appears in no apparent distress at this time. Patient and/or aa1 family updated on plan of care and expected duration. Pain level reassessed. Patient is alert, oriented x 3, equal unlabored respirations, skin warm/dry/pink. Awaiting CT results. Vital Signs: 20:09 BP 143 / 82; Pulse 85; Resp 16; Temp 98.2(O); Pulse Ox 100% on R/A; Weight 79.38 kg lp1 (R); Height 6 ft. 0 in. (182.88 cm); Pain 3/10; 20:52 BP 136 / 84; Pulse 80; Resp 18; Pulse Ox 100% on R/A; Pain 0/10; aa1 21:50 BP 134 / 89; Pulse 89; Resp 16; Pulse Ox 99% on R/A; Pain 0/10; aa1 20:09 Body Mass Index 23.73 (79.38 kg, 182.88 cm) lp1 ED Course: 19:40 Patient arrived in ED. cf2 20:09 Triage completed. lp1 20:09 Arm band placed on right wrist. lp1 20:15 Adonis Lerner MD is Attending Physician. rn 20:17 Lia Arizmendi RN is Primary Nurse. aa1 20:22 Patient has correct armband on for positive identification. Placed in gown. Bed in low aa1 position. Call light in reach. Pulse ox on. NIBP on. 20:32 Initial lab(s) drawn, by ED staff, sent to lab. Inserted saline lock: 20 gauge in right aa1 antecubital area, using aseptic technique. ,using aseptic technique. By Amanuel Mcbridebrook Blood collected. 21:[address] via wheelchair. ar 21:35 CT completed. Patient tolerated procedure well. Patient moved back from CT. 2 21:52 CT Abd/Pelvis - IV Contrast Only In Process Unspecified. EDMS Administered Medications: 20:37 Drug: NS 0.9% 1000 ml Route: IV; Rate: 1000 ml; Site: right antecubital; aa1 21:20 Follow up: IV Status: Completed infusion; IV Intake: 1000ml aa1 Intake: 21:20 IV: 1000ml; Total: 1000ml. aa1 Outcome: 22:36 Discharge ordered by . rn 22:41 Patient left the ED. aa1 Signatures: Dispatcher [employer] EDMS Lia Arizmendi, RN RN aa1 Adonis Lerner MD MD rn Pena, Laura, RN RN joey1 [facility] Jose R Luna Shama
[2019-05-26 01:46] VITALS: TEMP 98.2
[2019-05-26 01:47] VITALS: BP 134/89; O2SAT 99
--- NOTE | 2019-05-26 11:30 | RAD REPORT ---
EXAM DESCRIPTION: CT - Abdomen Pelvis W Contrast - 05/26/2019 2:34 am COMPARISON: None Indication: Abdominal pain, constipation TECHNIQUE: Multiple helical axial images were obtained through the abdomen and pelvis using intraven ous contrast. Coronal and sagittal reformatted images were obtained. All CT scans at this facility use dose modulation, iterative reconstruction, and/or weight-based dosi ng when appropriate to reduce radiation dose to as low as reasonably achievable. FINDINGS: Lung bases: Appear unremarkable. Liver: Homogenous attenuation is noted. Gallbladder/biliary: Appears unremarkable Pancreas: Unremarkable. No evidence of ductal enlargement. Spleen: Appears unremarkable. No splenomegaly. Adrenals: Unremarkable. Kidneys and ureters: No evidence of hydronephrosis. Normal enhancement. There is a 1 mm stone at th e inferior pole of the left kidney. Bladder: Unremarkable. Pelvic organs: Unremarkable. Bowel: No evidence of bowel obstruction. No bowel wall thickening. Appendix appears unremarkable. Vasculature: Unremarkable. Peritoneum: No free air. No significant free fluid. Lymph nodes: Unremarkable. Soft tissues: Unremarkable. Bones: Unremarkable. IMPRESSION: 1. No evidence for an acute process within the abdomen or pelvis. 2. Tiny nonobstructing left renal stone. Electronically signed by: Greyson Jeronimo MD 05/25/2019 10:20 PM SANDWICH COUNTER ATTENDANT Due to temporary technical issues with the PACS/Fluency reporting system, reports are being signed by the in house radiologist as a courtesy to ensure prompt reporting. The interpreting radiologist is f ully responsible for the content of the report.
--- OUTSIDE RECORDS SUMMARY | 2019-05-31 00:12 | XMS REPORT ---
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 Conditions or Problems Problem Name Problem Onset Status Entry Provider Comment Standard Annotate Code Date Date Description Exposure to V01.6 Active Harper Contact with sexually / Elliot or exposure to transmissible SOFTWARE ASSET MANAGEMENT ANALYST venereal disorder diseases (event) Homeless person V60.0 Active Amada Lack of Pale housing [facility] Chlamydial 099.41 Active David Nongonococcal infection / Jay Jay WEBBER urethritis [VÍCTOR] due to Chlamydia trachomatis Pneumonia 486 Active David Pneumonia, unspecified / Jay Jay WEBBER organism unspecified Std screening V74.5 Active David Screening / Jay Jay WEBBER examination for venereal disease Medication List Medication Instructions Start Stop Generic NDC Status Provider Patient Date Date Name Instruction TIVICAY 50 MG 1 By Mouth TIVICAY 50 MG DOLUTEGRAVIR Inactive ORAL TABLET once a day ORAL TABLET SODIUM TRUVADA 1 by mouth TRUVADA EMTRICITABINE Inactive 200-300 MG daily 200-300 MG -TENOFOVIR ORAL TABLET ORAL TABLET AZITHROMYCIN 2 tablets AZITHROMYCIN 99205 AZITHROMYCIN Inactive 250 MG ORAL by mouth 250 MG ORAL 0 TABLET on day one TABLET then one tablet by mouth each day for a total of 5 days CHERATUSSIN 2 CHERATUSSIN 61216 GUAIFENESIN-C Inactive AC 100-10 teaspoons AC 100-10 8 ODEINE MG/5ML ORAL (10mL) by MG/5ML ORAL SYRUP mouth SYRUP every 4 hours as needed for cough TESSALON 1 by mouth TESSALON 55981 BENZONATATE Inactive PERLES 100 MG 3 times a PERLES 100 MG 7 ORAL CAPSULE day as ORAL CAPSULE needed for cough TIVICAY 50 1 By DOLUTEGRAVIR [id number] No David Active MG ORAL Mouth SODIUM Longer Jay Jay TABLET once a Active MD day TRUVADA 1 by EMTRICITABINE [id number] No David Active 200-300 MG mouth -TENOFOVIR Longer Jay Jay ORAL daily Active MD TABLET AZITHROMYC 2 AZITHROMYCIN [id number] No David Active IN 250 MG tablets Longer Jay Jay ORAL by Active MD TABLET mouth on day one then one tablet by mouth each day for a total of 5 days CHERATUSSI 2 GUAIFENESIN-C [id number] No David Active N AC teaspoo ODEINE Longer Jay Jay 100-10 ns Active MD MG/5ML (10mL) ORAL SYRUP by mouth every 4 hours as needed for cough TESSALON 1 by BENZONATATE [id number] No David Active PERLES 100 mouth 3 Longer Jay Jay MG ORAL times a Active MD CAPSULE day as needed for cough Vital Signs Date Name Value Unit Range Description blood pressure, diastolic 84 mm[Hg] BP poole blood pressure, systolic 129 mm[Hg] BP sys height E&M 70 [in_us] Bdy height pulse rate E&M 100 /min Heart rate temperature E&M 97.7 [degF] Body temperature weight E&M 165.38 [lb_av] Weight Measured blood pressure, diastolic 79 mm[Hg] BP poole blood pressure, systolic 136 mm[Hg] BP sys height E&M 70 [in_us] Bdy height pulse rate E&M 102 /min Heart rate respiratory rate E&M 22 /min Resp rate temperature E&M 97.7 [degF] Body temperature weight E&M 161 [lb_av] Weight Measured blood pressure, diastolic 81 mm[Hg] BP poole blood pressure, systolic 128 mm[Hg] BP sys height E&M 70 [in_us] Bdy height pulse rate E&M 94 /min Heart rate respiratory rate E&M 18 /min Resp rate temperature E&M 98.1 [degF] Body temperature weight E&M 166 [lb_av] Weight Measured Diagnostic Results Date Name Value Unit Range Description Lab Report: Ct, Ng, Trich vag by YUE - Microbiology Neisseria gonorrhoeae DNA probe Negative Negative Lab Report: CBC With Differential/Platelet, RPR, Rfx Qn RPR/Confirm TP, ... - Hematology hematocrit, blood 42.6 % 37.5-51.0 Lab Report: Comp. Metabolic Panel (14), Written Authorization - Chemistry sodium, serum 141 mmol/L 134-144 Lab Report: CBC With Differential/Platelet, RPR, Rfx Qn RPR/Confirm TP, ... - Hematology neutrophils as percent of blood leukocytes 64 % Not Estab. basophils as percent of blood leukocytes 0 % Not Estab. Lab Report: RPR, Rfx Qn RPR/Confirm TP, Panel [id number] - Serology rapid plasma reagin antibody, serum Non Reactive Non Reactive Lab Report: Comp. Metabolic Panel (14), Written Authorization - Chemistry carbon dioxide, venous blood 26 mmol/L 20-29 Lab Report: RPR, Rfx Qn RPR/Confirm TP, Panel [id number], HCV Antibody, HBsA ... - Chemistry hepatitis B surface antigen Negative Negative Lab Report: Comp. Metabolic Panel (14), Written Authorization - Chemistry chloride, serum 102 mmol/L 96-106 calcium, serum 9.6 mg/dL 8.7-10.2 urea nitrogen, blood 13 mg/dL 6-20 alanine aminotransferase (SGPT), serum 20 U/L 0-44 Lab Report: CBC With Differential/Platelet, RPR, Rfx Qn RPR/Confirm TP, ... - Hematology mean corpuscular hemoglobin, RBC 29.6 pg 26.6-33.0 mean corpuscular hemoglobin concentration, RBC 31.9 G/DL % 31.5- 35.7 Lab Report: Comp. Metabolic Panel (14), Written Authorization - Chemistry protein, total, serum 6.8 g/dL 6.0-8.5 alkaline phosphatase, serum 54 U/L 39-117 Lab Report: CBC With Differential/Platelet, RPR, Rfx Qn RPR/Confirm TP, ... - Hematology erythrocyte (RBC) count 4.59 X10E6/UL 10*6/mm3 4.14-5.80 Lab Report: RPR, Rfx Qn RPR/Confirm TP, Panel [id number], HCV Antibody, HBsA ... - Serology hepatitis C antibody, serum 0.3 0.0-0.9 Lab Report: CBC With Differential/Platelet, RPR, Rfx Qn RPR/Confirm TP, ... - Hematology hemoglobin, blood 13.6 g/dL 13.0-17.7 Lab Report: CBC With Differential/Platelet, RPR, Rfx Qn RPR/Confirm TP, ... - Chemistry Absolute Neutrophils 6.4 X10E3/UL 10*3/uL 1.4-7.0 Lab Report: Comp. Metabolic Panel (14), Written Authorization - Chemistry urea nitrogen/creatinine ratio, serum 16 9-20 Lab Report: CBC With Differential/Platelet, RPR, Rfx Qn RPR/Confirm TP, ... - Hematology lymphocytes as percent of blood leukocytes 21 % Not Estab. mean corpuscular volume, RBC 93 fL 79-97 Lab Report: Comp. Metabolic Panel (14), Written Authorization - Genetics/ fertility eGFR if 139 mL/min/1.73m2 >59 Lab Report: CBC With Differential/Platelet, RPR, Rfx Qn RPR/Confirm TP, ... - Hematology basophil count, absolute 0.0 x10E3/uL 0.0-0.2 monocytes as percent of blood leukocytes 13 % Not Estab. Lab Report: Comp. Metabolic Panel (14), Written Authorization - Chemistry globulin, serum 2.3 1.5-4.5 creatinine, serum 0.82 mg/dL 0.76-1.27 Estimated Glomerular Filtration Rate 120 mL/min/1.73m2 >59 (calc) albumin/globulin ratio, serum 2.0 1.2-2.2 bilirubin, serum, total <0.2 mg/dL mg/dL 0.0-1.2 Lab Report: CBC With Differential/Platelet, RPR, Rfx Qn RPR/Confirm TP, ... - Hematology Eosinophil Absolute Count 0.2 X10E3/UL 10*3/uL 0.0-0.4 eosinophils as percent of blood 2 % Not Estab. leukocytes Lab Report: Ct, Ng, Trich vag by YUE - Lab chlamydia DNA probe Positive Negative Lab Report: Comp. Metabolic Panel (14), Written Authorization - Chemistry blood glucose, random 77 mg/dL 65-99 aspartate aminotransferase (SGOT), serum 16 U/L 0-40 Lab Report: CBC With Differential/Platelet, RPR, Rfx Qn RPR/Confirm TP, ... - Hematology red blood cell distribution width 12.9 % 12.3-15.4 leukocyte count, blood 10.0 X10E3/UL 10*3/mm3 3.4-10.8 Lab Report: Comp. Metabolic Panel (14), Written Authorization - Chemistry potassium, serum 4.6 mmol/L 3.5-5.2 Lab Report: CBC With Differential/Platelet, RPR, Rfx Qn RPR/Confirm TP, ... - Hematology monocyte count, blood, automated 1.3 X10E3/UL 10*3/uL 0.1-0.9 Lab Report: Ct/GC YUE, Pharyngeal - Microbiology Neisseria gonorrhoeae, throat culture Negative Negative Lab Report: Comp. Metabolic Panel (14), Written Authorization - Chemistry albumin, serum 4.5 g/dL 3.5-5.5 Lab Report: CBC With Differential/Platelet, RPR, Rfx Qn RPR/Confirm TP, ... - Chemistry immature granulocytes, percentage of total cells, blood 0 % Not Estab. Lab Report: CBC With Differential/Platelet, RPR, Rfx Qn RPR/Confirm TP, ... - Hematology platelet count 296 X10E3/UL 10*3/mm3 156-370 7786/11/19 lymphocyte count, blood, automated 2.1 X10E3/UL 10*3/mm3 0.7- 3.1 Encounters Date Encounter Provider Code Facility Ofc Vst, Est Level II David Goyal MD CPT-95329 [facility] 14:56:12 PRIMARY MONTESSORI TEACHER Ofc Vst, Est Level III Harper Zarate SOFTWARE ASSET MANAGEMENT ANALYST CPT-05170 [facility] 17:11:31 PRIMARY MONTESSORI TEACHER Ofc Vst, New Level III David Goyal MD CPT-89604 [facility] 10:36:25 PRIMARY MONTESSORI TEACHER Ofc Vst, New Level III David Goyal MD CPT-29344 [facility] 12:18:35 PRIMARY MONTESSORI TEACHER Procedures Code Procedure Name Date Entry Date Standard Description CPT-J8499 Azithromycin oral 17:10:09 PRIMARY MONTESSORI TEACHER CPT-J0696 Injection, ceftriaxone sodium, per 250 mg 08:11:45 PRIMARY MONTESSORI TEACHER CPT-J8499 Azithromycin oral 08:11:45 PRIMARY MONTESSORI TEACHER CPT-20148 Handling of specimen for transfer 15:57:34 PRIMARY MONTESSORI TEACHER CPT-86496 Venipuncture 15:57:32 PRIMARY MONTESSORI TEACHER CPT-J0696 Injection, ceftriaxone sodium, per 250 mg 09:56:40 PRIMARY MONTESSORI TEACHER
--- OUTSIDE RECORDS SUMMARY | 2019-05-31 00:12 | XMS REPORT ---
:1990 [facility] [address] [place] [address] Dr. Cole [address] [place] [id number] Care Team Providers Name Role Phone DARY FENG Unavailable Unavailable Problems This patient has no known problems. Allergies, Adverse Reactions, Alerts This patient has no known allergies or adverse reactions. Medications This patient has no known medications. Results Test Description Test Time Test Comments Text Results Atomic Results Result Comments FECAL LEUKOCYTES 2018-09-10 22:26:00 Test Item Value Reference Range Comments FECAL LEUKOCYTES (BEAKER) (test No fecal leukocytes seen No fecal leukocytes seen fxjh=[id number]) XR Chest 1 View [id number] 12:42:47Patient: PREETHI DORANTES Date/Time03/11/2018 12:19 CDTReason for ExamCoughReportCHEST 1 VIEWCLINICAL INFORMATION: CoughCOMPARISON : None availableFINDINGS:The lungs are well-expanded and clear. No airspace consolidation is seen. No pneumothorax or pleural effusion is present. The cardiac silhouette is normal in size. The bones are grossly intact.IMPRESSION: No acute cardiopulmonary finding.LOCATION: R16 Final Dictated by: MD Fang Adam FDictated DT/TM: 03/11/2018 12:42 pmSigned by: MD Fang Adam FSigned (Electronic Signature): 03/11/2018 12:42 pm
== END 2019-05-25 22:41 | disposition home or self-care (01) ==
LOC: ER 19:36
DX: K59.00 Constipation, unspecified (principal); F17.210 Nicotine dependence, cigarettes, uncomplicated
CPT/HCPCS: 36415; 74177; 80048; 80076; 83690; 85025; 96360; 99284; J7030; Q9967

== ENCOUNTER 2019-12-15 02:53 | Emergency (ER) | payer SELFPAY ==
[2019-12-15] MEDS ORDERED: LIDOCAINE 1% W/EPI 1:100,000 MDV 20 ML VIAL ONE (03:37)
[2019-12-15] MEDS ORDERED: KETOROLAC 30 MG/ML INJ ONE (03:37)
--- OUTSIDE RECORDS SUMMARY | 2019-12-15 06:53 | XMS REPORT | Clinical Summary ---
:1990 Author Organization [facility] Address [address] [place] [address] Care Team Providers Name Role Phone Asked, No Pcp Primary Care Provider Unavailable Allergies No Known Allergies Medications Not on file Active Problems Not on file Immunizations Name Administration Dates Next Due Td 06/23/2018, 06/23/2018 (Deferred: Other - Order changed/ adjusted by pharmacy due to the name brand) Social History Tobacco Use Types Packs/Day Years Used Date Never Assessed Sex Assigned at Date Recorded Not on file Job Start Date Occupation Industry Not on file Not on file Not on file Travel History Travel Start Travel End No recent travel history available. 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
--- OUTSIDE RECORDS SUMMARY | 2019-12-15 06:53 | XMS REPORT ---
:1990 Author Organization [facility] t Address [address] [place] [address] Care Team Providers Name Role Phone Asked, Pcp Primary Care Physician Unavailable William FENG Attending Clinician Unavailable Problems This patient has no known problems. Allergies, Adverse Reactions, Alerts This patient has no known allergies or adverse reactions. Social History Social Habit Start Date Stop Date Quantity Comments Source Sex Assigned At [facility] Medications This patient has no known medications. Immunizations Ordered Immunization Filled Immunization Date Status Commen ts Source Name Name Td 2018-06-23 [facility] 00:00:00 [facility] Procedures This patient has no known procedures. Plan of Care Planned Activity Planned Date Details Comments Source Future Scheduled 2020-02-19 INFLUENZA VACCINE [place] [facility] Test 00:00:00 [code = INFLUENZA VACCINE] Results Test Description Test Time Test Comments Results Result Comments Source FECAL LEUKOCYTES 2018-09-10 22:26:00 Test Item Value Reference Range Interpretation Comme nts FECAL LEUKOCYTES (BEAKER) (test No fecal leukocytes seen No fecal leukocytes seen code = 992) XR Chest 1 View [id number] 12:42:47Patient: PREETHI DORANTES Date/Time03/11/2018 12:19 CDTReason for ExamCoughReportCHEST 1 VIEWCLINICAL INFORMATION: CoughCOMPARISON: None availableFINDINGS:The lungs are well-expanded and clear. No airspace consolidation is seen. No pneumothorax or pleural effusion is present. The cardiac silhouette is normal in size. The bones are grossly in tact.IMPRESSION:No acute cardiopulmonary finding.LOCATION: R16 Final Dictated by: MD LeoncioMario FDictated DT/TM: 03/11/2018 12:42 pmSigned by: MD Fang Adam FSigned (Electronic Signature): 03/11/2018 12:42 pm
--- OUTSIDE RECORDS SUMMARY | 2019-12-15 06:53 | XMS REPORT | Clinical Summary ---
:1990 Author Organization [facility] Address [address] [id number] Care Team Providers Name Role Phone Unavailable Primary Care Provider Unavailable Allergies No Known Allergies Medications Not on file Active Problems Not on file Social History Tobacco Use Types Packs/Day Years Used Date Never Assessed Sex Assigned at Date Recorded Not on file Job Start Date Occupation Industry Not on file Not on file Not on file Travel History Travel Start Travel End No recent travel history available. Last Filed Vital Signs Not on file Plan of Treatment Not on file Results Not on fileafter 12/14/2018
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
[2019-12-15 13:39] VITALS: BP 119/74; TEMP 98.2; O2SAT 97
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
== END 2019-12-15 04:45 | disposition home or self-care (01) ==
LOC: ER 02:53
PROC: 0JQ10ZZ Repair Face Subcutaneous Tissue and Fascia, Open Approach (ICD-10-PCS; principal; 2019-12-15)
DX: S01.512A Laceration without foreign body of oral cavity, initial encounter (principal); V18.0XXA Pedal cycle driver injured in noncollision transport accident in nontraffic accident, initial encounter; Y93.9 Activity, unspecified; Y92.9 Unspecified place or not applicable
CPT/HCPCS: 70450; 72125; 72131; 96372; 99284